=== PATIENT | female | born 1950 | race Caucasian/White ===

== ENCOUNTER 2018-09-13 13:03 | Emergency (ER) | payer MEDICARE ==
[~2018-09-13] VITALS: Ht 152.4 cm; Wt 99.1 kg
[2018-09-13 13:20] VITALS: Ht 152.4 cm; Wt 99.1 kg
[2018-09-13] MEDS ORDERED: BAYER CHEWABLE81 MG PO (13:24)
[2018-09-13] MEDS ORDERED: K-TAB10 MEQ PO (13:24)
[2018-09-13] MEDS ORDERED: COUMADIN5 MG PO (13:25)
[2018-09-13] MEDS ORDERED: LASIX20 MG PO (13:25)
[2018-09-13] MEDS ORDERED: CELEXA10 MG PO (13:26)
[2018-09-13] MEDS ORDERED: LASIX40 MG PO (13:27)
[2018-09-13] MEDS ORDERED: METOPROLOL TART25 MG PO (13:29)
[2018-09-13] MEDS ORDERED: PRAVACHOL20 MG PO (13:34)
[2018-09-13 14:58] VITALS: BP 142/60
== END 2018-09-13 14:59 | disposition home or self-care (01) ==
LOC: D.ER 13:03
DX: G89.18 Other acute postprocedural pain (principal)